=== PATIENT | female | born 1965 | race Caucasian/White ===

== ENCOUNTER 2024-08-14 12:56 | Outpatient (CLI) | payer MEDICAID, SELFPAY ==
--- NOTE | 2024-08-14 13:00 | MM_ITS ---
WS: [id number] VIEWS: MLO and CC views both breasts. 3D digital tomosynthesis is also included in this exam. No prior exams. Findings: There are scattered areas of fibroglandular density. There are 2 adjacent irregular nodules in the upper outer quadrant of the RIGHT breast at mid depth. The largest nodule measures approximately 8 mm and the smaller nodule 3.66 mm. No suspicious calcification identified. There were no significant abnormalities demonstrated in the LEFT breast. Regional ultrasound as well as compression spot images with tomography of the upper outer quadrant of the RIGHT breast would be indicated for further work-up. MM/MM scr BI tomosynthesis [id number] Impression: BI-RADS: 0 - Incomplete: Need additional imaging evaluation. FOLLOW-UP: See Report This mammogram was also analyzed by the Computer Aided Detection System R2 Imag e Slitting Machine Operator Helper.
== END 2024-08-14 12:57 | disposition home or self-care (01) ==
PROVIDERS: PCP Student in an Organized Health Care Education/Training Program; Visit Provider Student in an Organized Health Care Education/Training Program
DX: Z12.31 Encounter for screening mammogram for malignant neoplasm of breast (principal); R92.323 Mammographic fibroglandular density, bilateral breasts; N63.11 Unspecified lump in the right breast, upper outer quadrant
CPT/HCPCS: 77063; 77067